=== PATIENT | female | born 1950 | race Caucasian/White ===

== ENCOUNTER → 2016-08-06 | Outpatient (CLI) | payer OTHER ==
[~2016-08-06] VITALS: Ht 157.5 cm; Wt 61.2 kg
[~2016-08-06] MED LIST: ASPI1TAB PO; CITRTAB18 PO; DIGE1CAP7 PO; FLAXOIL3 PO; HYDR200T3 PO; LANS30CA PO; LEVO75TA34 PO; LIDOCAINE 2% INJ 100 MG/5 ML SDV (FOR ANES.) As Ordered ONE; LUTECAP3 PO; MAGN500C PO; MULT1TAB10 PO; NIFE10CA2 PO; NIFE30TA7 PO; NS 500 ML IV SCH; PROPOFOL 500 MG/50 ML VIAL As Ordered ONE; VITA100037 PO
--- NOTE | 2016-08-06 09:18 | ROOR ---
Patient Name: Roxanne Blackwell Procedure Date: 08/06/2016 9:03 AM Date of : 1950 Age: 66 Room: [facility] Gender: Female Note Status: Finalized Procedure: Upper GI endoscopy Indications: Heartburn Providers: Randy MATUTE MD Referring MD: Rosalina Dumas DO Requesting Provider: Medicines: Monitored Anesthesia Care Complications: No immediate complications. Procedure: Pre-Anesthesia Assessment: - The heart rate, respiratory rate, oxygen saturations, blood pressure, adequacy of pulmonary ventilation, and response to care were monitored throughout the procedure. The Endoscope was introduced through the mouth, and advanced to the second part of duodenum. The upper GI endoscopy was accomplished without difficulty. The patient tolerated the procedure well. Findings: Non-severe esophagitis was found in the lower third of the esophagus. Biopsies were taken with a cold forceps for histology. Patchy mild inflammation characterized by erythema was found in the gastric body. Biopsies were taken with a cold forceps for histology. The exam was otherwise without abnormality. Impression: - Mild reflux esophagitis. Biopsied. - A small patch of gastritis. Biopsied. - The examination was otherwise normal. Recommendation: - Use Prevacid (lansoprazole) 30 mg PO daily. - Telephone endoscopist for pathology results in 2 weeks. - Follow an antireflux regimen. Randy Matute MD Randy MATUTE MD 08/06/2016 9:17:43 AM This report has been signed electronically. Number of Addenda: 0 Note Initiated On: 08/06/2016 9:03 AM Estimated Blood Loss: Estimated blood loss: none.
--- NOTE | 2016-08-06 09:32 | ROOR ---
Patient Name: Roxanne Blackwell Procedure Date: 08/06/2016 9:04 AM Date of : 1950 Age: 66 Room: [facility] Gender: Female Note Status: Finalized Procedure: Colonoscopy Indications: Screening for colorectal malignant neoplasm Providers: Randy MATUTE MD Referring MD: Rosalina Dumas DO Requesting Provider: Medicines: Monitored Anesthesia Care Complications: No immediate complications. Procedure: Pre-Anesthesia Assessment: - The heart rate, respiratory rate, oxygen saturations, blood pressure, adequacy of pulmonary ventilation, and response to care were monitored throughout the procedure. The Colonoscope was introduced through the anus and advanced to the terminal ileum, with identification of the appendiceal orifice and IC valve. The colonoscopy was performed without difficulty. The patient tolerated the procedure well. The quality of the bowel preparation was good. Findings: The perianal and digital rectal examinations were normal. Internal hemorrhoids were found. The hemorrhoids were mild. The entire examined colon appeared normal on direct and retroflexion views. Impression: - Internal hemorrhoids. - The colon is normal on direct and retroflexion views. - No specimens collected. Recommendation: - Repeat colonoscopy in 10 years for screening purposes. Randy Matute MD Randy MATUTE MD 08/06/2016 9:32:04 AM This report has been signed electronically. Number of Addenda: 0 Note Initiated On: 08/06/2016 9:04 AM Estimated Blood Loss: Estimated blood loss: none.
[2016-08-06 09:55] VITALS: BP 143/71
== END ==
LOC: M OPP 08:03
PROVIDERS: ATTEND Internal Medicine Gastroenterology
DX: Z12.11 Encounter for screening for malignant neoplasm of colon (principal); K64.8 Other hemorrhoids; K21.9 Gastro-esophageal reflux disease without esophagitis; R12 Heartburn; K29.70 Gastritis, unspecified, without bleeding; Z79.82 Long term (current) use of aspirin; Z79.899 Other long term (current) drug therapy; Z88.0 Allergy status to penicillin

== ENCOUNTER → 2016-08-09 | Outpatient (REF) | payer OTHER ==
[~2016-08-09] MED LIST changes: -LIDOCAINE 2% INJ 100 MG/5 ML SDV (FOR ANES.) As Ordered ONE; -NS 500 ML IV SCH; -PROPOFOL 500 MG/50 ML VIAL As Ordered ONE
[2016-08-09 12:37] LABS: ALT/SGPT 26 U/L (12-78); CREATININE FOR GFR 0.75 MG/DL (0.55-1.02); GLOMERULAR FILTRATION RATE > 60.0 (>45)
[2016-08-09 12:38] LABS: BASO % 0.7 % (0.0-1.0); LARGE UNSTAINED CELL # 0.1 K/mm3 (0.0-0.4); LARGE UNSTAINED CELL % 1.8 % (0.0-4.0); LYMPH # 1.3 K/mm3 (1.5-4.5); MEAN CORPUSCULAR HEMOGLOBIN 30.2 pg (27.0-33.0); MEAN CORPUSCULAR HGB CONC 33.1 g/dl (32.0-36.5); MEAN CORPUSCULAR VOLUME 91.2 fl (80.0-96.0); MONO # 0.3 K/mm3 (0.0-0.8); MONO % 6.2 % (0.0-5.0); NEUTROPHILS # 3.2 K/mm3 (1.8-7.7); NEUTROPHILS % 65.4 % (36.0-66.0); PLATELET COUNT, AUTOMATED 183 k/mm3 (150-450); RED CELL DISTRIBUTION WIDTH 12.9 % (11.5-14.5); WHITE BLOOD COUNT 4.8 K/mm3 (4.0-10.0)
[2016-08-09 14:47] LABS: ERYTHROCYTE SEDIMENTATION RATE 7 mm/hr (0-30)
== END ==
LOC: M LABDRAW1 09:56
PROVIDERS: ATTEND Internal Medicine Rheumatology
DX: M32.9 Systemic lupus erythematosus, unspecified (principal); Z79.899 Other long term (current) drug therapy

== ENCOUNTER → 2016-09-25 | Outpatient (CLI) | payer OTHER ==
[~2016-09-25] MED LIST changes: -VITA100037 PO; +VITA100067 PO
--- NOTE | 2016-09-25 10:00 | REPMRS ---
Patient History The patient states she had a clinical breast exam in 08/2016. Patient is postmenopausal. Family history of breast cancer in maternal aunt at age 50 or over, breast cancer in paternal aunt at age 50 or over, and premenopausal breast cancer in paternal grandmother at age 50 or over. Digital Woman Screen Mammo: September 25, 2016 - Exam #: [id number] Bilateral CC and MLO view(s) were taken. Technologist: Hanna Aguiar, Technologist Prior study comparison: September 06, 2015, digital woman screen mammo performed at [email or web address]. August 03, 2014, digital woman screen mammo performed at [email or web address]. March 09, 2013, digital woman screen mammo performed at [email or web address]. FINDINGS: There are scattered fibroglandular densities. There has been no change in the appearance of the mammogram from the prior studies. There is a mild amount of scattered fibroglandular density which is fairly symmetric. There is no interval development of dominant mass, architectural distortion, or clustered microcalcification suggestive of malignancy. ASSESSMENT: BI-RADS/ACR category 1 mammogram. Negative. Recommendation Routine screening mammogram in 1 year (for women over age 40). This mammogram was interpreted with the aid of an FDA-approved computer-aided dectection system. Electronically Signed By: Tim Gusman MD 09/25/16 1000
== END ==
LOC: M WHC 08:57
PROVIDERS: ATTEND Family Medicine
DX: Z12.31 Encounter for screening mammogram for malignant neoplasm of breast (principal)

== ENCOUNTER → 2020-10-04 | Outpatient (CLI) | payer MEDICARE, OTHER ==
[~2020-10-04] MED LIST changes: -ASPI1TAB PO; +ASPI81TA26 PO; +NIFE1TAB52 PO; -NIFE30TA7 PO
[2020-10-04 13:55] LABS: CHOLESTEROL RISK RATIO 4.272 (<5); THYROID STIMULATING HORMONE 3.62 uIU/ML (0.358-3.740)
== END ==
LOC: M PLALAB 09:50
PROVIDERS: ATTEND Family Medicine
DX: E03.9 Hypothyroidism, unspecified (principal)

== ENCOUNTER → 2020-10-23 | Outpatient (CLI) | payer MEDICARE, OTHER ==
[~2020-10-23] MED LIST changes: +CHOL25TA8 PO; +CITRTAB8 PO; +FAMO20TA PO; +LUTE40CA2 PO; +MAGN1CAP PO; +SYNT88TA2 PO; +VITMTA PO
== END ==
LOC: M LABSMTC 09:54
PROVIDERS: ATTEND Anesthesiology
DX: Z01.812 Encounter for preprocedural laboratory examination (principal); Z20.828 Contact with and (suspected) exposure to other viral communicable diseases

== ENCOUNTER → 2020-10-25 | Outpatient (CLI) | payer MEDICARE, OTHER | LOC: M WHC 09:24 | PROVIDERS: ATTEND Family Medicine | DX: Z12.31 Encounter for screening mammogram for malignant neoplasm of breast (principal) ==

== ENCOUNTER 2020-10-27 12:31 | Day surgery (SDC) | payer MEDICARE, OTHER ==
[~2020-10-27] VITALS: Ht 157.5 cm; Wt 65.8 kg
[~2020-10-27 12:31] MED LIST changes: +NS 1,000 ML IV ONE
[2020-10-27] MEDS ORDERED: fentaNYL 100 MCG/2 ML INJECTION (J3010) As Ordered ONE (14:09)
[2020-10-27] MEDS ORDERED: propofoL 200 MG/20 ML VIAL As Ordered ONE (14:09)
[2020-10-27] MEDS ORDERED: LIDOCAINE 2% 100MG/5ML SDV (FOR ANES.) As Ordered ONE (14:09)
--- NOTE | 2020-10-27 14:41 | ROOR ---
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 Procedure: Pre-Anesthesia Assessment: - The heart rate, respiratory rate, oxygen saturations, blood pressure, adequacy of pulmonary ventilation, and response to care were monitored throughout the procedure. The Endoscope was introduced through the mouth, and advanced to the second part of duodenum. The upper GI endoscopy was accomplished without difficulty. The patient tolerated the procedure well. Findings: The Z-line was variable and was found 36 cm from the incisors. Biopsies were taken with a cold forceps for histology. The exam of the esophagus was otherwise normal. The entire examined stomach was normal. The examined duodenum was normal. Impression: - Normal esophagus with variable Z-line , 36 cm from the incisors. Biopsied. - Normal stomach. - Normal examined duodenum. Recommendation: - Continue present medications. - Repeat upper endoscopy in 3 years for surveillance. Procedure Code(s): --- Professional --- 75401, Esophagogastroduodenoscopy, flexible, transoral; with biopsy, single or multiple Diagnosis Code(s): --- Professional --- K22.70, Breen's esophagus without dysplasia K22.8, Other specified diseases of esophagus CPT copyright 2019 [employer]. All rights reserved. The codes documented in this report are preliminary and upon collection systems technician review may be revised to meet current compliance requirements. Randy aMtute MD Randy Matute MD 10/27/2020 2:40:40 PM Electronically signed by Randy Matute MD Number of Addenda: 0 Note Initiated On: 10/27/2020 2:19 PM Estimated Blood Loss: Estimated blood loss: none.
[2020-10-27 15:00] VITALS: BP 137/65
== END 2020-10-27 15:07 | disposition home or self-care (01) ==
LOC: M OPP 12:31
PROVIDERS: ATTEND Internal Medicine Gastroenterology
DX: K22.8 Other specified diseases of esophagus (principal); K22.70 Barrett's esophagus without dysplasia; I73.01 Raynaud's syndrome with gangrene; Z80.0 Family history of malignant neoplasm of digestive organs; Z80.2 Family history of malignant neoplasm of other respiratory and intrathoracic organs; Z80.3 Family history of malignant neoplasm of breast; Z79.82 Long term (current) use of aspirin; Z79.899 Other long term (current) drug therapy
CPT/HCPCS: 43239; 88305; J3010

== ENCOUNTER → 2022-09-06 | Outpatient (CLI) | payer MEDICARE, OTHER ==
[~2022-09-06] MED LIST changes: -HYDR200T3 PO; +HYDR200T46 PO; -NS 1,000 ML IV ONE
== END ==
LOC: M CARPUL 10:45
PROVIDERS: ATTEND Family Medicine
DX: Z00.00 Encounter for general adult medical examination without abnormal findings (principal); R01.1 Cardiac murmur, unspecified; E03.9 Hypothyroidism, unspecified; K22.70 Barrett's esophagus without dysplasia; Z12.39 Encounter for other screening for malignant neoplasm of breast; R09.89 Other specified symptoms and signs involving the circulatory and respiratory systems; M34.1 CR(E)ST syndrome; E78.49 Other hyperlipidemia

== ENCOUNTER → 2023-07-30 | Outpatient (CLI) | payer MEDICARE, OTHER ==
[2023-07-30 11:33] LABS: BASO % 0.6 % (0.0-1.0); EOS # 0.2 10^3/uL (0.0-0.5); EOS % 2.7 % (0.0-3.0); HEMATOCRIT 44.1 % (36.0-47.0); HEMOGLOBIN 14.1 g/dl (12.0-15.5); LYMPH # 2.3 10^3/uL (1.5-5.0); LYMPH % 34.8 % (24.0-44.0); MEAN CORPUSCULAR VOLUME 90.7 fl (80.0-96.0); MONO # 0.7 10^3/uL (0.0-0.8); MONO % 10.3 % (2.0-8.0); NEUTROPHILS # 3.4 10^3/uL (1.5-8.5); NEUTROPHILS % 51.3 % (36.0-66.0); PLATELET COUNT, AUTOMATED 265 10^3/uL (150-450); RED BLOOD COUNT 4.86 10^6/uL (4.00-5.40); WHITE BLOOD COUNT 6.6 10^3/uL (4.0-10.0)
[2023-07-30 11:53] LABS: ALBUMIN 3.3 G/DL (3.2-5.2); ALKALINE PHOSPHATASE 117 U/L (46-116); ALT/SGPT 28 U/L (7.0-40); AST/SGOT 17 U/L (<34); BILIRUBIN,TOTAL 0.6 MG/DL (0.3-1.2); BLOOD UREA NITROGEN 21 MG/DL (9-23); CALCIUM LEVEL 9.8 MG/DL (8.3-10.6); CARBON DIOXIDE LEVEL 30 MMOL/L (20-31); CHLORIDE LEVEL 107 MMOL/L (98-107); CHOLESTEROL LEVEL 177 MG/DL (<200); CREATININE FOR GFR 0.58 MG/DL (0.55-1.30); GLOMERULAR FILTRATION RATE > 60.0 (>39); GLUCOSE, FASTING 96 MG/DL (74-106); HDL CHOLESTEROL 58.9 MG/DL (>40); LDL CHOLESTEROL 93.5 MG/DL (<100); NON-HDL-C 118.1 MG/DL; POTASSIUM SERUM 4.7 MMOL/L (3.5-5.1); SODIUM LEVEL 143 MMOL/L (136-145); THYROID STIMULATING HORMONE 6.954 uIU/ML (0.55-4.78); TOTAL PROTEIN 6.6 G/DL (5.7-8.2); TRIGLYCERIDES LEVEL 123 MG/DL (<150)
== END ==
LOC: M PLALAB 08:34
PROVIDERS: ATTEND Family Medicine
DX: E03.9 Hypothyroidism, unspecified (principal)

== ENCOUNTER → 2023-11-04 | Outpatient (CLI) | payer MEDICARE, OTHER ==
[~2023-11-04] MED LIST changes: -NIFE10CA2 PO; +NIFE10CA61 PO
[2023-11-04 10:10] LABS: BASO # 0.1 10^3/uL (0.0-0.2); BASO % 0.8 % (0.0-1.0); EOS # 0.2 10^3/uL (0.0-0.5); EOS % 2.9 % (0.0-3.0); HEMATOCRIT 41.4 % (36.0-47.0); HEMOGLOBIN 13.4 g/dl (12.0-15.5); LYMPH % 32.3 % (24.0-44.0); MEAN CORPUSCULAR HEMOGLOBIN 28.9 pg (27.0-33.0); MEAN CORPUSCULAR HGB CONC 32.4 g/dl (32.0-36.5); MEAN CORPUSCULAR VOLUME 89.4 fl (80.0-96.0); MONO # 0.7 10^3/uL (0.0-0.8); MONO % 11.7 % (2.0-8.0); NEUTROPHILS # 3.3 10^3/uL (1.5-8.5); PLATELET COUNT, AUTOMATED 247 10^3/uL (150-450); RED BLOOD COUNT 4.63 10^6/uL (4.00-5.40); WHITE BLOOD COUNT 6.3 10^3/uL (4.0-10.0)
[2023-11-04 10:32] LABS: BLOOD UREA NITROGEN 17 MG/DL (9-23); CALCIUM LEVEL 9.6 MG/DL (8.3-10.6); CARBON DIOXIDE LEVEL 30 MMOL/L (20-31); CHLORIDE LEVEL 104 MMOL/L (98-107); CREATININE FOR GFR 0.58 MG/DL (0.55-1.30); GLOMERULAR FILTRATION RATE > 60.0 (>39); GLUCOSE, FASTING 102 MG/DL (74-106); POTASSIUM SERUM 3.9 MMOL/L (3.5-5.1); SODIUM LEVEL 139 MMOL/L (136-145)
== END ==
LOC: M PLALAB 08:08
PROVIDERS: ATTEND Internal Medicine Cardiovascular Disease
DX: R07.89 Other chest pain (principal)

== ENCOUNTER → 2024-06-08 | Outpatient (CLI) | payer MEDICARE, OTHER ==
[2024-06-08 14:13] LABS: CHOLESTEROL RISK RATIO 3.43 (<5); HDL CHOLESTEROL 47.5 MG/DL (>40); LDL CHOLESTEROL 94.5 MG/DL (<100); NON-HDL-C 115.5 MG/DL
== END ==
LOC: M PLALAB 10:54
PROVIDERS: ATTEND Nurse Practitioner Family
DX: E78.5 Hyperlipidemia, unspecified (principal)

== ENCOUNTER → 2024-07-12 | Outpatient (CLI) | payer MEDICARE, OTHER ==
[2024-07-12 14:23] LABS: ALBUMIN 3.3 G/DL (3.2-5.2); ALKALINE PHOSPHATASE 107 U/L (35-104); ALT/SGPT 23 U/L (7.0-40); AST/SGOT 19 U/L (<34); BILIRUBIN,TOTAL 0.5 MG/DL (0.3-1.2); BLOOD UREA NITROGEN 18 MG/DL (9-23); CALCIUM LEVEL 9.2 MG/DL (8.3-10.6); CARBON DIOXIDE LEVEL 28 MMOL/L (20-31); CHLORIDE LEVEL 103 MMOL/L (98-107); CREATININE FOR GFR 0.65 MG/DL (0.55-1.30); GLOMERULAR FILTRATION RATE > 90.0 (>39); GLUCOSE, FASTING 97 MG/DL (74-106); POTASSIUM SERUM 4.7 MMOL/L (3.5-5.1); SODIUM LEVEL 140 MMOL/L (136-145); TOTAL PROTEIN 6.5 G/DL (5.7-8.2)
== END ==
LOC: M PLALAB 09:54
DX: I25.10 Atherosclerotic heart disease of native coronary artery without angina pectoris (principal)